=== PATIENT | female | born 1960 | race Caucasian/White ===

== ENCOUNTER → 2017-11-28 | Outpatient (CLI) | payer MEDICARE ==
--- NOTE | 2017-11-29 11:38 | MM ---
Reason for exam: screening (asymptomatic). Last mammogram was performed 1 year and 3 months ago. History: Patient is postmenopausal. Family history of breast cancer in maternal grandmother at age 60 and breast cancer in maternal aunt at age 50. Took estrogen for 2 months. Physical Findings: A clinical breast exam by your physician is recommended on an annual basis and results should be correlated with mammographic findings. MG 3D Screening Mammo W/Cad Bilateral CC and MLO view(s) were taken. Prior study comparison: August 28, 2016, bilateral MG screening mammo w CAD. September 12, 2015, bilateral MG screening mammo w CAD. The breast tissue is heterogeneously dense. This may lower the sensitivity of mammography. No suspicious abnormality. No significant changes when compared with prior studies. ASSESSMENT: Negative, BI-RAD 1 RECOMMENDATION: Routine screening mammogram of both breasts in 1 year.
== END | disposition home or self-care (01) ==
LOC: RADMAMWWP 07:40
PROVIDERS: ATTEND Family Medicine
DX: Z12.31 Encounter for screening mammogram for malignant neoplasm of breast (principal)
CPT/HCPCS: 77063; 77067

== ENCOUNTER → 2020-03-31 | Outpatient (CLI) | payer MEDICARE ==
[2020-03-31 19:53] LABS: Chol/HDL Ratio 2.28; LDL Cholesterol,Calculated 82.6 mg/dL (0.0-131.0); VLDL Calculation 13.4 mg/dL (5.00-40.00)
== END | disposition home or self-care (01) ==
LOC: LABWHC1 09:16
PROVIDERS: ATTEND Internal Medicine
DX: E03.9 Hypothyroidism, unspecified (principal); E78.00 Pure hypercholesterolemia, unspecified
CPT/HCPCS: 36415; 80061; 84439; 84443

== ENCOUNTER → 2020-04-22 | Outpatient (CLI) | payer MEDICARE ==
--- NOTE | 2020-04-24 15:21 | US ---
EXAMINATION TYPE: US thyroid st tissue head/neck DATE OF EXAM: 04/22/2020 COMPARISON: NONE CLINICAL HISTORY: 59-year-old female E04.2 thyroid nodule. TECHNIQUE: Multiple sonographic images of the thyroid gland are obtained. FINDINGS: GLAND SIZE: Right Lobe: 5.1 x 1.8 x 2.2 cm Overall Parenchyma: heterogenous Left Lobe: Surgically absent Isthmus Thickness: .3 cm NODULES RIGHT: # of nodules measured on right: 3 1. 2.3 X .8 x 1.9 cm hypoechoic solid nodule at the mid pole with well-defined margins; . This nod ule is wider than tall and shows intranodular vascularity. Prior size: 1.7 x .7 x 1.3 cm 2. 1.0 X .7 x 1.0 cm hypoechoic mixed nodule at the lower pole with well-defined margins; . This no dule is wider than tall and shows intranodular vascularity. Prior size Not measured on previous. 3. .5 X .4 x .4 cm echogenic, likely calcified, solid nodule at the lower pole with well-defined mar gins; . This nodule is wider than tall and shows no intranodular vascularity. Prior size: .5 x .6 x .5 cm LEFT: Surgically removed. ISTHMUS: # of nodules measured in the isthmus: 0 Bilateral neck scanned, no evidence of lymphadenopathy. IMPRESSION: 1. Status post left thyroidectomy. 2. Three nodules on the right, the largest at the mid pole currently measures 2.3 x 1.9 x 0.8 cm (joesph lazara 1.7 x 1.3 x 0.7 cm, previously). Given increasing size, consider FNA.
== END | disposition home or self-care (01) ==
LOC: RADUSWWP 14:53
PROVIDERS: ATTEND Internal Medicine
DX: E04.2 Nontoxic multinodular goiter (principal)
CPT/HCPCS: 76536

== ENCOUNTER → 2020-07-27 | Outpatient (CLI) | payer MEDICARE ==
--- NOTE | 2020-07-28 14:16 | MM ---
Reason for exam: screening (asymptomatic). Last mammogram was performed 2 years and 8 months ago. History: Patient is postmenopausal and history of other cancer. Family history of breast cancer in maternal grandmother at age 60 and breast cancer in maternal aunt at age 50. Took estrogen for 2 months. Physical Findings: A clinical breast exam by your physician is recommended on an annual basis and results should be correlated with mammographic findings. MG 3D Screening Mammo W/Cad Bilateral CC and MLO view(s) were taken. Prior study comparison: November 28, 2017, bilateral MG 3d screening mammo w/cad. August 28, 2016, bilateral MG screening mammo w CAD. The breast tissue is heterogeneously dense. This may lower the sensitivity of mammography. Benign appearing calcifications in the left breast. No significant changes when compared with prior studies. ASSESSMENT: Benign, BI-RAD 2 RECOMMENDATION: Routine screening mammogram of both breasts in 1 year.
== END | disposition home or self-care (01) ==
LOC: RADMAMWWP 16:24
PROVIDERS: ATTEND Family Medicine
DX: Z12.31 Encounter for screening mammogram for malignant neoplasm of breast (principal)
CPT/HCPCS: 77063; 77067

== ENCOUNTER → 2021-01-30 | Outpatient (CLI) | payer MEDICARE ==
[2021-01-30 09:36] LABS: Basophils # (A) 0.1 k/uL (0-0.2); Basophils % (A) 1 %; Eosinophils # (A) 0.3 k/uL (0-0.7); Eosinophils % (A) 6 %; HCT 39.1 % (34.0-46.0); HGB 13.3 gm/dL (11.4-16.0); Lymphocytes # (A) 1.4 k/uL (1.0-4.8); Lymphocytes % (A) 34 %; MCH 31.3 pg (25.0-35.0); MCV 92.1 fL (80.0-100.0); Mean Platelet Volume 7.6; Monocytes # (A) 0.3 k/uL (0-1.0); Monocytes % (A) 6 %; Neutrophils # (A) 2.1 k/uL (1.3-7.7); Neutrophils % (A) 50 %; Platelet Count 212 k/uL (150-450); RBC 4.24 m/uL (3.80-5.40); RDW 12.5 % (11.5-15.5); WBC 4.3 k/uL (3.8-10.6)
[2021-01-30 09:51] LABS: Albumin 4.5 g/dL (3.5-5.0); Calcium 9.6 mg/dL (8.4-10.2); Total Bilirubin 0.5 mg/dL (0.2-1.3)
--- NOTE | 2021-01-30 09:51 | US ---
EXAMINATION TYPE: US abdomen complete DATE OF EXAM: 01/30/2021 COMPARISON: NONE CLINICAL HISTORY: 60-year-old female K30 Functional dyspepsia. TECHNIQUE: Multiple sonographic images of the abdomen are obtained. FINDINGS: EXAM MEASUREMENTS: Liver Length: 14.2 cm Gallbladder: Surgically absent CBD: .9 cm Spleen: 9.8 cm Right Kidney: 8.3 x 3.8 x 4.8 cm Left Kidney: 8.8 x 4.5 x 3.8 cm Pancreas: Tail and portions of the pancreatic body are obscured by overlying bowel gas Liver: wnl Gallbladder: Surgically absent Evidence for sonographic Ahuja's sign: No CBD: Dilated. Spleen: wnl Right Kidney: Limited lower pole due to overlying bowel gas. No ellen hydronephrosis. Left Kidney: Limited lower pole due to overlying bowel gas. No ellen hydronephrosis. Upper IVC: wnl Abd Aorta: wnl IMPRESSION: 1. Dilated bile duct at 9 mm likely due to the postcholecystectomy status. Correlate for normal alkal ine phosphatase and bilirubin levels. 2. Technically limited visualization of portions of the kidneys and pancreas.
== END | disposition home or self-care (01) ==
LOC: RADUSWWP 08:47
PROVIDERS: ATTEND Family Medicine
DX: K30 Functional dyspepsia (principal); Z90.49 Acquired absence of other specified parts of digestive tract
CPT/HCPCS: 76700; 80053; 82150; 83690; 85025

== ENCOUNTER 2021-02-28 08:43 | Day surgery (SDC) | payer MEDICARE ==
[2021-02-24 14:34] VITALS: BMI 25.4
[~2021-02-28 08:43] MED LIST: LACTATED RINGERS 1,000 ML IV SCH; LIDOCAINE 1% (10MG/ML) FOR IV START INTRADERMA PRN
[2021-02-28 09:19] VITALS: TEMP 98.6
[2021-02-28] MEDS ORDERED: LIDOCAINE 1% INJ 10MG/ML (20 ML MDV) ONE (09:49)
[2021-02-28] MEDS ORDERED: GLYCOPYRROLATE 0.2 MG/ML 2 ML VIAL ONE (09:49)
[2021-02-28] MEDS ORDERED: PROPOFOL 10 MG/ML 20 ML VIAL IV ONE (09:49)
--- NOTE | 2021-02-28 10:48 | P.PCN ---
Date of Procedure: 02/28/21 Description of Procedure: Brief history: Patient is a 60-year-old female presenting for outpatient EGD and colonoscopy for evaluation of nausea and vomiting and constipation/chronic constipation. The patient reports episodes of nausea and vomiting especially when the patient is suffering from worsening constipation. Constipation has been chronic with bowel movements every 2-3 days however she can go up to 2 weeks bowel movements. Procedure performed: Esophagogastroduodenoscopy with biopsy and gold probe ablation of a small bowel AVM Colonoscopy with polypectomy Estimated blood loss: Minimal. Preoperative diagnosis: Nausea and vomiting, constipation, last colonoscopy 2015. Anesthesia: MAC Procedure: After informed consent was obtained from the patient was brought into the endoscopy unit and IV sedation was administered by anesthesia under continuous monitoring. Initially upper endoscopy was done. The Olympus GF 190 video endoscope was inserted into the mouth and esophagus intubated without any difficulty and was gradually advanced into the stomach and duodenum and carefully examined. The bulb and second part of the duodenum appeared normal, with biopsies taken. 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 The scope was then withdrawn into the stomach adequately insufflated with air and upon careful examination the antrum and body, cardia and fundus appeared normal, except for some mild punc vasquez erythema in the antrum and body suggestive of mild gastritis of biopsies taken. The scope was then withdrawn into the esophagus. The GE junction was located at 38 cm to the incisors, with biopsies of lower esophagus. It appeared regular with no erythema erosions or ulcerations. Rest of the esophagus appeared normal. Patient tolerated the procedure well. At this time the patient continued to remain sedation. Initial digital rectal examination was normal. Olympus CF 190 video colonoscope was then inserted into the rectum and gradually advanced to the cecum without any difficulty. Careful examination was performed as the scope was gradually being withdrawn. The prep was excellent. The cecum, ascending colon, transverse colon, descending colon, sigmoid colon and rectum appeared normal.. A diminutive 2 mm polyp was removed with cold forcep polypectomy from the transverse colon. Retroflexion was performed in the rectum and no lesions were noted, low-grade internal hemorrhoi ds. Patient tolerated the procedure well. Impression: 1. Mild gastritis. 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 Biopsies of the duodenum, antrum and body and lower esophagus. 2. Diminutive transverse colon polyp removed with cold forcep polypectomy. Otherwise normal-appearing colon from rectum to cecum. Internal hemorrhoids. Recommendations: Findings of this examination were discussed with the patient as well as her family. Okay to resume diet. Okay to resume medications. Continue current medical management. Await follows a from biopsies and polypectomy. Recommend repeat colonoscopy in 7 years pending pathology from polypectomy.
[2021-02-28 11:26] VITALS: BP 110/78; PULSE 78; RESP 18
== END 2021-02-28 11:27 | disposition home or self-care (01) ==
LOC: ORWHC2ENDO 08:43
PROVIDERS: ATTEND Internal Medicine
DX: D12.3 Benign neoplasm of transverse colon (principal); K64.8 Other hemorrhoids; K29.50 Unspecified chronic gastritis without bleeding; K20.90 Esophagitis, unspecified without bleeding; K31.819 Angiodysplasia of stomach and duodenum without bleeding; K59.09 Other constipation; E07.9 Disorder of thyroid, unspecified; E78.5 Hyperlipidemia, unspecified; Z79.890 Hormone replacement therapy; Z79.899 Other long term (current) drug therapy; Z88.6 Allergy status to analgesic agent
CPT/HCPCS: 88305; 45380; 43239; 43255; J2001; J2704

== ENCOUNTER 2021-06-03 14:48 | Inpatient (IN) | payer MEDICARE ==
--- NOTE | 2021-06-03 15:27 | ED ---
General Adult HPI - General Chief complaint: Psychiatric Symptoms Stated complaint: Mental Health Time Seen by Provider: 06/03/21 14:51 Source: patient, family, RN notes reviewed, old records reviewed Mode of arrival: ambulatory Limitations: no limitations - History of Present Illness Initial comments: 61-year-old female presenting for mental health evaluation. Patient has had increased depression, anxiety, suicidal thoughts. She denies suicide attempt. She has had possible plan to overdose on medication. She is currently on Prozac and bupropion. No recent medication changes. She currently does not have a psychiatrist. She denies alcohol or illicit drugs. No physical complaints. - Related Data Home Medications Medication Instructions Recorded Confirmed Atorvastatin [Lipitor] 20 mg PO DAILY 04/20/15 06/03/21 Levothyroxine Sodium [Synthroid] 50 mcg PO DAILY 04/20/15 06/03/21 Rivastigmine Tartrate [Exelon] 3 mg PO BID 02/24/21 06/03/21 buPROPion XL [Wellbutrin Xl] 300 mg PO DAILY 02/24/21 06/03/21 FLUoxetine HCL [PROzac] 60 mg PO DAILY 06/03/21 06/03/21 Linaclotide [Linzess] 145 mcg PO DAILY 06/03/21 06/03/21 Omeprazole 20 mg PO DAILY 06/03/21 06/03/21 Allergies Allergy/AdvReac Type Severity Reaction Status Date / Time aspirin [From Percodan] AdvReac Nausea & Verified 06/03/21 14:54 Vomiting oxycodone HCl [From Percodan] AdvReac Nausea & Verified 06/03/21 14:54 Vomiting oxycodone terephthalate AdvReac Nausea & Verified 06/03/21 14:54 [From Percodan] Vomiting Review of Systems ROS Statement: Those systems with pertinent positive or pertinent negative responses have been documented in the HPI. ROS Other: All systems not noted in ROS Statement are negative. Past Medical History Past Medical History: Cancer, Hyperlipidemia, Memory Impairment, Thyroid Disorder Additional Past Medical History / Comment(s): ABD. PAIN, CONSTIPATION AND N/V. SKIN CANCER History of Any Multi-Drug Resistant Organisms: None Reported Past Surgical History: Cardiac Ablation, Section, Cholecystectomy, Hysterectomy Additional Past Surgical History / Comment(s): thyroid surg. ovarian mass. COLONOSCOPY Past Anesthesia/Blood Transfusion Reactions: No Reported Reaction Past Psychological History: Anxiety, Depression, PTSD Smoking Status: Never smoker Past Alcohol Use History: Rare Past Drug Use History: None Reported - Past Family History Mother Family Medical History: Deep Vein Thrombosis (DVT) Father Family Medical History: Cancer General Exam Limitations: no limitations General appearance: alert, in no apparent distress Head exam: Present: atraumatic, normocephalic Eye exam: Present: normal appearance, PERRL ENT exam: Present: normal exam Neck exam: Present: normal inspection. Absent: tenderness, meningismus Respiratory exam: Present: normal lung sounds bilaterally. Absent: respiratory distress, wheezes Cardiovascular Exam: Present: regular rate, normal rhythm GI/Abdominal exam: Present: soft. Absent: distended, tenderness, guarding Extremities exam: Present: normal inspection, normal capillary refill. Absent: pedal edema Neurological exam: Present: alert, oriented X3 Psychiatric exam: Present: depressed, flat affect, suicidal ideation Skin exam: Present: warm, dry, intact. Absent: cyanosis, diaphoretic Course Vital Signs 06/03/21 14:49 Temperature 97.9 F Pulse Rate 60 Respiratory 19 Rate Blood Pressure 131/80 O2 Sat by Pulse 98 Oximetry - Reevaluation(s) Reevaluation #1: 06/03/21 1510 Medically cleared for EPS Medical Decision Making - Medical Decision Making 61-year-old who had presented for mental health evaluation. She was cleared medically and evaluated by EPS, felt to require inpatient psychiatric evaluation treatment. She will be admitted to this institution. - Lab Data Lab Results 06/03/21 Range/Units 15:12 Urine Opiates Screen Not Detected (NotDetected) Ur Oxycodone Screen Not Detected (NotDetected) Urine Methadone Screen Not Detected (NotDetected) Ur Propoxyphene Screen Not Detected (NotDetected) Ur Barbiturates Screen Not Detected (NotDetected) U Tricyclic Antidepress Not Detected (NotDetected) Ur Phencyclidine Scrn Not Detected (NotDetected) Ur Amphetamines Screen Not Detected (NotDetected) U Methamphetamines Scrn Not Detected (NotDetected) U Benzodiazepines Scrn Detected H (NotDetected) Urine Cocaine Screen Not Detected (NotDetected) U Marijuana (THC) Screen Not Detected (NotDetected) Disposition Clinical Impression: Depression, Suicidal ideation Disposition: ADMITTED IP TO THIS HOSP Condition: Stable Is patient prescribed a controlled substance at d/c from ED?: No Referrals: Teddy Mathias III, MD [Primary Care Provider] - 1-2 days Decision to Admit Reason: Admit from EC Decision Date: 06/03/21 Decision Time: 16:40
[2021-06-03 15:33] LABS: Amphetamine Screen,Urine Not Detected (NotDetected); Barbiturate Screen,Urine Not Detected (NotDetected); Benzodiazepines Screen,Urine Detected (NotDetected); Cocaine Screen,Urine Not Detected (NotDetected); Methadone Screen, Urine Not Detected (NotDetected); Opiate Screen,Urine Not Detected (NotDetected); Oxycodone Screen, Urine Not Detected (NotDetected); Phencyclidine Screen,Urine Not Detected (NotDetected); Tricyclic Antidepressant,Urine Not Detected (NotDetected); Urn Cannabinoid Scrn Not Detected (NotDetected)
[2021-06-03] MEDS ORDERED: MAG HYDROX/AL HYDROX/SIMETH 30 ML CUP PO PRN (19:14)
[2021-06-03] MEDS ORDERED: ACETAMINOPHEN TAB 325 MG TAB PO PRN (19:14)
[2021-06-03] MEDS ORDERED: hydrOXYzine pamoate 25 MG CAP PO PRN (19:16)
[2021-06-03 20:50] LABS: Amorphous Sediment,Urine Rare /hpf; Appearance,Urine Cloudy (Clear); Bilirubin,Urine Negative (Negative); Blood,Urine Negative (Negative); Color,Urine Yellow; Glucose,Urine (UA) Negative (Negative); Ketones,Urine Trace (Negative); Leukocyte Esterase,Urine Negative (Negative); Mucus,Urine Rare /hpf; Nitrite,Urine Negative (Negative); Protein,Urine Negative (Negative); Specific Gravity,Urine 1.017 (1.001-1.035); Urobilinogen,Urine <2.0 mg/dL (<2.0); WBC,Urine 1 /hpf (0-5)
[2021-06-04 07:55] LABS: Basophils % (A) 1 %; Eosinophils # (A) 0.2 k/uL (0-0.7); Eosinophils % (A) 5 %; HCT 39.5 % (34.0-46.0); Lymphocytes # (A) 1.9 k/uL (1.0-4.8); Lymphocytes % (A) 46 %; MCV 93.8 fL (80.0-100.0); Mean Platelet Volume 7.9; Monocytes # (A) 0.3 k/uL (0-1.0); Monocytes % (A) 7 %; Neutrophils # (A) 1.6 k/uL (1.3-7.7); Neutrophils % (A) 39 %; Platelet Count 222 k/uL (150-450); RBC 4.21 m/uL (3.80-5.40); RDW 12.4 % (11.5-15.5); WBC 4.2 k/uL (3.8-10.6)
[2021-06-04 08:08] LABS: ALT 20 U/L (4-34); AST 29 U/L (14-36); African American GFR (CKD) >90 (>60 ml/min/1.73 sqM); Albumin 4.3 g/dL (3.5-5.0); Alkaline Phosphatase 59 U/L (38-126); Anion Gap 7 mmol/L; Blood Urea Nitrogen 17 mg/dL (7-17); Calcium 9.7 mg/dL (8.4-10.2); Carbon Dioxide 27 mmol/L (22-30); Chloride 107 mmol/L (98-107); Glucose 80 mg/dL (74-99); Non-African American GFR(CKD) 87 (>60 ml/min/1.73 sqM); Potassium 3.9 mmol/L (3.5-5.1); Sodium 141 mmol/L (137-145); Total Bilirubin 0.5 mg/dL (0.2-1.3); Total Protein 6.5 g/dL (6.3-8.2)
[2021-06-04] MEDS: FLUoxetine HCL 20 MG CAP PO SCH (08:18)
[2021-06-04] MEDS ORDERED: buPROPion XL 300 MG TAB.ER.24H PO SCH (09:00)
[2021-06-04 11:36] LABS: Chol/HDL Ratio 2.71; Cholesterol 160 mg/dL (0-200); LDL Cholesterol,Calculated 78.4 mg/dL (0.0-131.0)
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
[2021-06-04] MEDS: DONEPEZIL 10 MG TAB PO SCH ×2 (14:07→14:11)
[2021-06-04 14:16] LABS: Hemoglobin A1C 5.3 % (4.0-6.0)
[2021-06-04] MEDS: MIRTAZAPINE 15 MG TAB PO SCH (20:40)
[2021-06-04] MEDS: RIVASTIGMINE 3 MG PO SCH (20:41)
--- NOTE | 2021-06-04 22:59 | P.CONS ---
History of Present Illness - History of Present Illness This is a pleasant 61 years old female with past medical history of hypothyr oidism, memory impairment and patient follows up With [facility] neurologist, irritable bowel syndrome. Patient was admitted to the mental health unit with depression and anxiety. Medical consult was requested for routine medical management Medical consult was requested for routine medical management. Seen walking in the hallway with no difficulty. Denies chest pain or dyspnea. No coughing. She denies change in urine or bowel habits. No fever labs including CBC, BMP and liver enzymes are unremarkable. Urine drug screen is only positive for benzodiazepines. Urine analysis is not suspicious of infection Review of Systems Review of systems CONSTITUTIONAL: No fever, no malaise, no fatigue. HEENT: No recent visual problems or hearing problems. Denied any sore throat. CARDIOVASCULAR: No orthopnea, PND, no palpitations, no syncope. PULMONARY: No shortness of breath, no cough, no hemoptysis. GASTROINTESTINAL: No diarrhea, no nausea, no vomiting, no abdominal pain. Normoactive bowel sounds. NEUROLOGICAL: No headaches, no weakness, no numbness. HEMATOLOGICAL: Denies any bleeding or petechiae. GENITOURINARY: Denies any burning micturition, frequency, or urgency. MUSCULOSKELETAL/RHEUMATOLOGICAL: Denies any joint pain, swelling, or any muscle pain. ENDOCRINE: Denies any polyuria or polydipsia. Past Medical History Past Medical History: Cancer, Hyperlipidemia, Memory Impairment, Thyroid Disor be[place] Additional Past Medical History / Comment(s): ABD. PAIN, CONSTIPATION AND N/V. SKIN CANCER History of Any Multi-Drug Resistant Organisms: None Reported Past Surgical History: Cardiac Ablation, Section, Cholecystectomy, Hysterectomy Additional Past Surgical History / Comment(s): thyroid surg. ovarian mass. COLONOSCOPY Past Anesthesia/Blood Transfusion Reactions: No Reported Reaction Past Psychological History: Anxiety, Depression, PTSD Smoking Status: Never smoker Past Alcohol Use History: Rare Past Drug Use History: None Reported - Past Family History Mother Family Medical History: Deep Vein Thrombosis (DVT) Father Family Medical History: Cancer Medications and Allergies Home Medications Medication Instructions Recorded Confirmed Type Atorvastatin [Lipitor] 20 mg PO DAILY 04/20/15 06/03/21 History Levothyroxine Sodium [Synthroid] 50 mcg PO DAILY 04/20/15 06/03/21 History Rivastigmine Tartrate [Exelon] 3 mg PO BID 02/24/21 06/03/21 History buPROPion XL [Wellbutrin Xl] 300 mg PO DAILY 02/24/21 06/03/21 History FLUoxetine HCL [PROzac] 60 mg PO DAILY 06/03/21 06/03/21 History Linaclotide [Linzess] 145 mcg PO DAILY 06/03/21 06/03/21 History Omeprazole 20 mg PO DAILY 06/03/21 06/03/21 History Allergies Allergy/AdvReac Type Severity Reaction Status Date / Time aspirin [From Percodan] AdvReac Nausea & Verified 06/03/21 20:45 Vomiting oxycodone HCl [From Percodan] AdvReac Nausea & Verified 06/03/21 20:45 Vomiting oxycodone terephthalate AdvReac Nausea & Verified 06/03/21 20:45 [From Percodan] Vomiting Physical Exam Vitals: Vital Signs Temp Pulse Pulse Resp BP BP Pulse Ox 06/04/21 06:47 98.5 F 62 16 99/57 06/03/21 20:58 98.6 F 69 15 135/70 06/03/21 19:24 20 06/03/21 17:53 18 95 06/03/21 15:53 20 98 06/03/21 14:49 97.9 F 60 19 131/80 98 Intake and Output 06/03/21 06/04/21 06/04/21 22:59 06:59 14:59 Other: Weight 69.967 kg GENERAL: The patient is alert and oriented x3, not in any acute distress. Well developed, well nourished. HEENT: Pupils are round and equally reacting to light. EOMI. No scleral icterus. No conjunctival pallor. Normocephalic, atraumatic. No pharyngeal erythema. No thyromegaly. CARDIOVASCULAR: S1 and S2 present. No murmurs, rubs, or gallops. PULMONARY: Chest is clear to auscultation, no wheezing or crackles. ABDOMEN: Soft, nontender, nondistended, normoactive bowel sounds. No palpable organomegaly. MUSCULOSKELETAL: No joint swelling or deformity. EXTREMITIES: No cyanosis, clubbing, or pedal edema. NEUROLOGICAL: Gross neurological examination did not reveal any focal deficits. SKIN: No rashes. no petechiae. Results CBC & Chem 7: 08/01/21 07:17 06/04/21 07:17 Labs: Abnormal Lab Results - Last 24 Hours (Table) 06/03/21 06/03/21 Range/Units 15:12 15:12 Urine Appearance Cloudy H (Clear) Urine Ketones Trace H (Negative) Amorphous Sediment Rare H (None) /hpf Urine Mucus Rare H (None) /hpf U Benzodiazepines Scrn Detected H (NotDetected) Assessment and Plan Assessment: -Depression and other psychiatric illnesses, as per [facility] primary team -Hypothyroidism continue with levothyroxine -Memory impairment, continue with same medication and follow-up with her neurologist and [facility] We recommend patient follow up with PCP in one week after discharge, patient was instructed with the same Consulting us, see the patient on as needed basis. Please free to contact us for any further questions
[2021-06-05] MEDS: LEVOTHYROXINE 50 MCG TAB PO SCH (06:27)
[2021-06-05] MEDS: FAMOTIDINE 20 MG TAB PO SCH (08:29)
[2021-06-05] MEDS: RIVASTIGMINE 3 MG PO SCH ×2 (08:30→20:33)
[2021-06-05] MEDS: NON FORMULARY DRUG (Linaclotide [Linzess] 145 MCG Capsule) PO SCH (08:30)
[2021-06-05] MEDS: ATORVASTATIN 20 MG TAB PO SCH (08:30)
[2021-06-05] MEDS: FLUoxetine HCL 20 MG CAP PO SCH (08:30)
[2021-06-05] MEDS ORDERED: buPROPion XL 150 MG TAB.ER.24H PO SCH (09:00)
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
[2021-06-05] MEDS: MIRTAZAPINE 15 MG TAB PO SCH (20:34)
[2021-06-05] MEDS ORDERED: PRAZOSIN 1 MG CAP PO SCH (21:00)
[2021-06-06] MEDS: LEVOTHYROXINE 50 MCG TAB PO SCH (06:49)
[2021-06-06 06:59] VITALS: RESP 16; TEMP 97.5
[2021-06-06] MEDS: FLUoxetine HCL 20 MG CAP PO SCH (07:37)
[2021-06-06] MEDS: ATORVASTATIN 20 MG TAB PO SCH (07:37)
[2021-06-06] MEDS: NON FORMULARY DRUG (Linaclotide [Linzess] 145 MCG Capsule) PO SCH (07:37)
[2021-06-06] MEDS: FAMOTIDINE 20 MG TAB PO SCH (07:37)
[2021-06-06] MEDS: RIVASTIGMINE 3 MG PO SCH (07:38)
[2021-06-06 08:03] VITALS: BP 97/60; PULSE 83
--- NOTE | 2021-06-06 11:07 | P.DS ---
Providers Date of admission: 06/03/21 18:48 Expected date of discharge: 06/06/21 Attending physician: Austin Carpio MD Consults: 06/03/21 19:14 Consult Physician Routine Consulting Provider: Ginny Perez Consult Reason/Comments: New Admission H & P Do you want consulting provider notified?: Yes Primary care physician: Teddy Mathias - Discharge Diagnosis(es) (1) Major depressive disorder, recurrent severe without psychotic features Current Visit: Yes Status: Acute Priority: High (2) Anxiety disorder, unspecified Current Visit: Yes Status: Chronic Priority: Medium (3) PTSD (post-traumatic stress disorder) Current Visit: Yes Status: Chronic Priority: Medium Hospital Course: Admission HPI: Initial psychiatric evaluation was completed by Dr. Mills on 06/04/2021 who wrote: "Patient is a 61-year-old female. She is the mother of 4 adult children. She is a retired teacher Patient presented to the hospital due to worsening depression with suicidal ideation with a plan to take an overdose. Patient reported having tense relatio nship with her adult children. She states one of her sons does not allow her to spend time alone with her grandchildren because she had been diagnosed with mild cognitive impairment in 2014 by a neurologist. According to the patient she could not tolerate Aricept due to upset stomach and then was put on Exelon. Patient states she noted improvement in her cognitive abilities since she started Exelon. Patient states she continues to complete her activities of daily living with no issues and also drive her car. Patient states in 2014 she had to [facility] due to having mild cognitive impairment. Patient states her psychiatrist Dr. Monson, who managed her depression and anxiety for numerous years left the practice a year ago . She states her current health insurance does not affiliate with her therapist whom she had seen for 5 years. Patient states she was diagnosed with depression over 30 years ago. She states she has been taking Prozac for almost 30 years. She states at first she was put on Prozac 20 mg and then was increased to 60mg in the last few years. Patient states 2 years ago her psychiatrist added Wellbutrin XL 150 mg and then was increased to 300 mg a year ago. Patient noted improvement of her depression however her anxiety worsened. Patient reported feeling increasingly depressed, having sleep difficulties, having crying spells, low tolerance for frustration, feeling hopeless and helpless in addition to having thoughts of suicide. Patient states she had Xanax 0.5 mg to take whenever she has to take a flight. Patient states in the last couple days she took 3 or 4 tablets of Xanax to help her sleep but that did not help. He states that she was afraid of taking too much of Xanax. Patient reported having the tendency to worry just ab out everything. She reported having nightmares. Patient denies homicidal ideations intent or plan. At this time patient denies any auditory or visual hallucinations. Patient denies any flight of ideas racing thoughts and increased in goal directed behavior. Patient denies having previous inpatient psychiatric admission. Denies having history of suicide attempts. She states her depression and anxiety started over 30 years ago as managed by . Also has been receiving therapy. In the past she did not respond favorably to Celexa. She states she has been responding favorably to Prozac and then Wellbutrin was added 2 years ago" Hospital course: Upon admission to the unit patient was initially depressed and anxious with mood congruent affect and poor hygiene and grooming. Patient was however directable and agreeable to commence treatment. Patient was continued on her home medications of Prozac and Remeron and her dose of Wellbutrin was decreased from 300 mg to 150 mg in order to address her worsening anxiety and insomnia. The patient was also evaluated by the medical team for history and physical examination. The patient engaged in both individual and milieu therapies. Over the course of the hospitalization, the treatment team was made aware by the patient's family that she has been exhibiting some hoarding-like behaviors. The decision was made to taper off the Wellbutrin as this may contribute to these kind of behaviors along with her elevated anxiety and symptoms of insomnia. 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 The patient displayed gradual improvement on her regimen of Prozac, Remeron, and prazosin and with Wellbutrin being discontinued. On the day of discharge, the patient is not endorsing any suicidal or homicidal ideation, intention, and/or plan. She denies any access to firearms or weapons in the family confirms that they took away all the excess amounts of Xanax in the home. Furthermore, the patient is not reporting any auditory or visual hallucinations. She is denying any paranoia or other delusions. She is future oriented. She expresses a strong desire to live for herself and for her family, and strongly desires to reconcile with her son so that she may be reunited with her grandchildren. The patient was counseled on length on being adherent with her medications and following up with her outpatient appointments. The patient was also counseled at length on abstaining from benzodiazepine medications as this may contribute to her cognitive impairment and place her at increased risk for falls and dependency. The patient expresses understanding. Prior to discharge, family meeting will be arranged by social worker aide to answer any questions and ensure safety. Mental status exam: General Appearance: Patient appears to be stated age is alert, pleasant, and cooperative. Patient is in no acute distress and has good hygiene and grooming. Behavior: Patient is calmly seated without any agitated behavior. Eye contact is appropriate. Psychomotor activity is normal. Speech: Patient's speech is fluent and nonpressured. Hyperverbal but interruptible. Normal rate and tone. Mood/Affect: Patient reports their mood is "feeling really good", affect is congruent and euthymic to bright. Suicidality/Homicidality: Patient denies having any suicidal or homicidal ideation intent or plan. Perceptions: Patient denies any auditory or visual hallucinations. Though content/process: There is no evidence of any delusional thought content and thought process is linear and goal-directed. The patient is future oriented. Memory and concentration: AOX3, grossly intact for the purposes of this session. Can spell "WORLD" backwards correctly. Judgment and insight: Improved Vital Signs Temp 97.5 F L 06/06/21 06:58 Pulse 83 06/06/21 07:40 Resp 16 06/06/21 07:40 BP 97/60 06/06/21 07:40 Pulse Ox 95 06/03/21 17:53 Impression: Major depressive disorder recurrent severe without psychotic features Anxiety disorder, unspecified Posttraumatic stress disorder Plan: -Continue with discharge today as patient has improved and stabilized psychiatrically and is not currently an imminent threat to herself and/or others. -Continue medications: Prozac 60 mg daily for depression/anxiety/PTSD Remeron 7.5 mg at bedtime for insomnia/depression Prazosin 1 mg at bedtime for PTSD related nightmares. -Patient was counseled on the need for medication compliance and appropriate follow-up at mental health and also primary care for medical issues. Patient verbalized understanding and agreed. -Social work to arrange for and conduct family meeting to ensure safety upon discharge and answer any questions/concerns. Social work also to arrange for patients follow up appointments with [facility] for psychiatric care along with follow up with primary care provider. -Patient counseled on abstaining from recreational drugs and marijuana and alcohol. Was informed/educated on the adverse effects on their physical and mental health. Patient verbally agreed and understood. -Patient was instructed to return to the hospital or seek immediate medical care if their psychiatric or medical symptoms do worsen or reoccur. -Psychoeducation and supportive therapy provided to patient. Risks and benefits of pharmacological treatment versus the risks and benefits of nontreatment weight and discussed. Informed consent discussion held. Common side effects of psychotropics discussed such as, but not limited to headache, GI disturbance, sexual dysfunction, movement disorders, sedation, and orthostatic hypotension. Life threatening and blackbox warnings of prescribed medications also discussed. Potential risks of operating a vehicle or heavy machinery discussed with patient at length. Advised on importance of compliance and a reliable and responsible manner. Patient advised to review FDA consumer labeling of all medications prior to taking. Patient verbalized understanding of potential risks, and agrees with current treatment plan. Patient advised to medically contact physician/emergency personnel if any acute changes in condition occur. Allergies Allergy/AdvReac Type Severity Reaction Status Date / Time aspirin [From Percodan] AdvReac Nausea & Verified 06/03/21 20:45 Vomiting oxycodone HCl [From Percodan] AdvReac Nausea & Verified 06/03/21 20:45 Vomiting oxycodone terephthalate AdvReac Nausea & Verified 06/03/21 20:45 [From Percodan] Vomiting Laboratory Results WBC 4.2 k/uL (3.8-10.6) 06/04/21 07:17 RBC 4.21 m/uL (3.80-5.40) 06/04/21 07:17 Hgb 13.0 gm/dL (11.4-16.0) 06/04/21 07:17 Hct 39.5 % (34.0-46.0) 06/04/21 07:17 MCV 93.8 fL (80.0-100.0) 06/04/21 07:17 MCH 31.0 pg (25.0-35.0) 06/04/21 07:17 MCHC 33.0 g/dL (31.0-37.0) 06/04/21 07:17 RDW 12.4 % (11.5-15.5) 06/04/21 07:17 Plt Count 222 k/uL (150-450) 06/04/21 07:17 MPV 7.9 06/04/21 07:17 Neutrophils % 39 % 06/04/21 07:17 Lymphocytes % 46 % 06/04/21 07:17 Monocytes % 7 % 06/04/21 07:17 Eosinophils % 5 % 06/04/21 07:17 Basophils % 1 % 06/04/21 07:17 Neutrophils # 1.6 k/uL (1.3-7.7) 06/04/21 07:17 Lymphocytes # 1.9 k/uL (1.0-4.8) 06/04/21 07:17 Monocytes # 0.3 k/uL (0-1.0) 06/04/21 07:17 Eosinophils # 0.2 k/uL (0-0.7) 06/04/21 07:17 Basophils # 0.0 k/uL (0-0.2) 06/04/21 07:17 Sodium 141 mmol/L (137-145) 06/04/21 07:17 Potassium 3.9 mmol/L (3.5-5.1) 06/04/21 07:17 Chloride 107 mmol/L (98-107) 06/04/21 07:17 Carbon Dioxide 27 mmol/L (22-30) 06/04/21 07:17 Anion Gap 7 mmol/L 06/04/21 07:17 BUN 17 mg/dL (7-17) 06/04/21 07:17 Creatinine 0.75 mg/dL (0.52-1.04) 06/04/21 07:17 Est GFR (CKD-EPI)AfAm >90 (>60 ml/min/1.73 sqM) 06/04/21 07:17 Est GFR (CKD-EPI)NonAf 87 (>60 ml/min/1.73 sqM) 06/04/21 07:17 Glucose 80 mg/dL (74-99) 06/04/21 07:[address] Glu mg/dL 105 06/04/21 07:17 Hemoglobin A1c 5.3 % (4.0-6.0) 06/04/21 07:17 Calcium 9.7 mg/dL (8.4-10.2) 06/04/21 07:17 Total Bilirubin 0.5 mg/dL (0.2-1.3) 06/04/21 07:17 AST 29 U/L (14-36) 06/04/21 07:17 ALT 20 U/L (4-34) 06/04/21 07:17 Alkaline Phosphatase 59 U/L (38-126) 06/04/21 07:17 Total Protein 6.5 g/dL (6.3-8.2) 06/04/21 07:17 Albumin 4.3 g/dL (3.5-5.0) 06/04/21 07:17 Triglycerides 113.0 mg/dL (0.0-149.0) 06/04/21 07:17 Cholesterol 160 mg/dL (0-200) 06/04/21 07:17 LDL Cholesterol, Calc 78.4 mg/dL (0.0-131.0) 06/04/21 07:17 VLDL Cholesterol, Calc 22.60 mg/dL (5.00-40.00) 06/04/21 07:17 HDL Cholesterol 59.0 mg/dL (40.0-60.0) 06/04/21 07:17 Cholesterol/HDL Ratio 2.71 06/04/21 07:17 TSH 2.110 mIU/L (0.465-4.680) 06/04/21 07:17 Urine Color Yellow 06/03/21 15:12 Urine Appearance Cloudy (Clear) H 06/03/21 15:12 Urine pH 8.0 (5.0-8.0) 06/03/21 15:12 Ur Specific [place] 1.017 (1.001-1.035) 06/03/21 15:12 Urine Protein Negative (Negative) 06/03/21 15:12 Urine Glucose (UA) Negative (Negative) 06/03/21 15:12 Urine Ketones Trace (Negative) H 06/03/21 15:12 Urine Blood Negative (Negative) 06/03/21 15:12 Urine Nitrite Negative (Negative) 06/03/21 15:12 Urine Bilirubin Negative (Negative) 06/03/21 15:12 Urine Urobilinogen <2.0 mg/dL (<2.0) 06/03/21 15:12 Ur Leukocyte Esterase Negative (Negative) 06/03/21 15:12 Urine WBC 1 /hpf (0-5) 06/03/21 15:12 Amorphous Sediment Rare /hpf (None) H 06/03/21 15:12 Urine Mucus Rare /hpf (None) H 06/03/21 15:12 Urine Opiates Screen Not Detected (NotDetected) 06/03/21 15:12 Ur Oxycodone Screen Not Detected (NotDetected) 06/03/21 15:12 Urine Methadone Screen Not Detected (NotDetected) 06/03/21 15:12 Ur Propoxyphene Screen Not Detected (NotDetected) 06/03/21 15:12 Ur Barbiturates Screen Not Detected (NotDetected) 06/03/21 15:12 U Tricyclic Antidepress Not Detected (NotDetected) 06/03/21 15:12 Ur Phencyclidine Scrn Not Detected (NotDetected) 06/03/21 15:12 Ur Amphetamines Screen Not Detected (NotDetected) 06/03/21 15:12 U Methamphetamines Scrn Not Detected (NotDetected) 06/03/21 15:12 U Benzodiazepines Scrn Detected (NotDetected) H 06/03/21 15:12 Urine Cocaine Screen Not Detected (NotDetected) 06/03/21 15:12 U Marijuana (THC) Screen Not Detected (NotDetected) 06/03/21 15:12 Patient Condition at Discharge: Stable Plan - Discharge Summary Discharge Rx Participant: No New Discharge Prescriptions: New Prazosin [Minipress] 1 mg PO HS 30 Days cap FLUoxetine HCL [PROzac] 60 mg PO DAILY 30 Days cap Mirtazapine [Remeron] 7.5 mg PO HS 30 Days tab Continue Atorvastatin [Lipitor] 20 mg PO DAILY Levothyroxine Sodium [Synthroid] 50 mcg PO DAILY Rivastigmine Tartrate [Exelon] 3 mg PO BID Linaclotide [Linzess] 145 mcg PO DAILY Omeprazole 20 mg PO DAILY Discontinued buPROPion XL [Wellbutrin Xl] 300 mg PO DAILY FLUoxetine HCL [PROzac] 60 mg PO DAILY Discharge Medication List Atorvastatin [Lipitor] 20 mg PO DAILY 04/20/15 [History] Levothyroxine Sodium [Synthroid] 50 mcg PO DAILY 04/20/15 [History] Rivastigmine Tartrate [Exelon] 3 mg PO BID 02/24/21 [History] Linaclotide [Linzess] 145 mcg PO DAILY 06/03/21 [History] Omeprazole 20 mg PO DAILY 06/03/21 [History] FLUoxetine HCL [PROzac] 60 mg PO DAILY 30 Days cap 06/06/21 [Rx] Mirtazapine [Remeron] 7.5 mg PO HS 30 Days tab 06/06/21 [Rx] Prazosin [Minipress] 1 mg PO HS 30 Days cap 06/06/21 [Rx] Follow up Appointment(s)/Referral(s): Teddy Mathias III, MD [Primary Care Provider] - 1-2 days Discharge Disposition: HOME SELF-CARE Care Plan Goals (MU): Activity and diet as tolerated. Avoid the use of street drugs and alcohol. Take all medications as prescribed. When you are in need of refills on your medications please contact your medical provider and/or outpatient psychiatrist to have this done. Please go to scheduled outpatient appointment for aftercare. If symptoms return or become worse call the crisis line at and/or go to the nearest emergency room for an evaluation.
== END 2021-06-06 14:02 | disposition home or self-care (01) | DRG 885 ==
LOC: EC 14:48 → 3MHU 18:48
PROVIDERS: ADMIT Psychiatry & Neurology Psychiatry; ATTEND Psychiatry & Neurology Psychiatry
DX: F33.2 Major depressive disorder, recurrent severe without psychotic features (principal); R45.851 Suicidal ideations; F43.10 Post-traumatic stress disorder, unspecified; G31.84 Mild cognitive impairment of uncertain or unknown etiology; G47.00 Insomnia, unspecified; Z79.890 Hormone replacement therapy; Z79.899 Other long term (current) drug therapy; Z81.8 Family history of other mental and behavioral disorders; Z85.828 Personal history of other malignant neoplasm of skin; Z87.828 Personal history of other (healed) physical injury and trauma; Z90.710 Acquired absence of both cervix and uterus; Z91.81 History of falling; E78.5 Hyperlipidemia, unspecified; E03.9 Hypothyroidism, unspecified
CPT/HCPCS: 80053; 80061; 80306; 81001; 82075; 83036; 84443; 85025; 99285

== ENCOUNTER → 2021-08-24 | Outpatient (CLI) | payer MEDICARE ==
--- NOTE | 2021-08-28 10:49 | MM ---
Reason for exam: screening (asymptomatic). Last mammogram was performed 1 year and 1 month ago. History: Patient is postmenopausal and history of other cancer. Family history of breast cancer in paternal grandmother at age 60 and breast cancer in paternal aunt at age 50. Took estrogen for 2 months. Physical Findings: A clinical breast exam by your physician is recommended on an annual basis and results should be correlated with mammographic findings. MG 3D Screening Mammo W/Cad Bilateral CC and MLO view(s) were taken. Prior study comparison: July 27, 2020, bilateral MG 3d screening mammo w/cad. November 28, 2017, bilateral MG 3d screening mammo w/cad. August 28, 2016, bilateral MG screening mammo w CAD. September 12, 2015, bilateral MG screening mammo w CAD. The breast tissue is heterogeneously dense. This may lower the sensitivity of mammography. No significant changes when compared with prior studies. ASSESSMENT: Negative, BI-RAD 1 RECOMMENDATION: Routine screening mammogram of both breasts in 1 year.
== END | disposition home or self-care (01) ==
LOC: RADMAMWWP 11:00
PROVIDERS: ATTEND Family Medicine
DX: Z12.31 Encounter for screening mammogram for malignant neoplasm of breast (principal)
CPT/HCPCS: 77063; 77067

== ENCOUNTER → 2022-08-27 | Outpatient (CLI) | payer MEDICARE ==
--- NOTE | 2022-08-28 09:43 | MM ---
Reason for Exam: Screening (asymptomatic). Last screening mammogram was performed 12 month(s) ago. Patient History: Menarche at age 13. First Full-Term at age 21. Hysterectomy at age 45. Postmenopausal. Patient has history of breast feeding. Estrogen for 2 months. Paternal grandmother had breast cancer, age 60. Paternal aunt had breast cancer, age 50. Risk Values: Chrystal 5 year model risk: 1.3%. NCI Lifetime model risk: 6.4%. Prior Study Comparison: 11/28/2017 Bilateral Screening Mammogram, [facility]. 07/27/2020 Bilateral Screening Mammogram, [facility]. 08/24/2021 Bilateral Screening Mammogram, [facility]. Tissue Density: The breast tissue is heterogeneously dense. This may lower the sensitivity of mammography. Findings: Analyzed By CAD. There is no suspicious group of microcalcifications or new suspicious mass in either breast. Benign calcifications within both breasts. Stable chronic nodularity in the left breast. No significant change from prior exams. Overall Assessment: Benign, BI-RAD 2 Management: Screening Mammogram of both breasts in 1 year. A clinical breast exam by your physician is recommended on an annual basis and results should be correlated with mammographic findings. Electronically signed and approved by: Delgado Menchaca D.O.
== END | disposition home or self-care (01) ==
LOC: RADMAMWWP 10:18
PROVIDERS: ATTEND Family Medicine
DX: Z12.39 Encounter for other screening for malignant neoplasm of breast (principal)
CPT/HCPCS: 77063; 77067

== ENCOUNTER 2023-06-12 12:05 | Day surgery (SDC) | payer MEDICARE ==
[2023-06-12 12:38] VITALS: BP 127/72; PULSE 64; RESP 16; TEMP 98.4
--- NOTE | 2023-06-12 22:53 | US ---
EXAMINATION TYPE: US FNA thyroid first lesion DATE OF EXAM: 06/12/2023 1:46 PM CLINICAL INDICATION:Female, 63 years old with history of E04.1 NONTOXIC SINGLE THYROID NODULE; COMPARISON: 04/22/2020 RADIOLOGIST: Dr. Chavez TECHNIQUE: Ultrasound guided percutaneous fine-needle aspiration. The patient was monitored by a milly zhong trained nurse independent of the Radiologist during sedation. FINDINGS: The procedure was explained to the patient. All questions were answered and informed consent was obta ined. The patient was placed supine and transverse ultrasound images of the thyroid gland are obtained. The TR for solid nodule measuring 2.2 x 1.4 x 1.0 cm in the anterior midpole is identified and targeted for sampling. We also saw the second, deeper nodule in the right lobe for which sampling was requested. However, th is now is a partially solid cystic, predominantly cystic 1.5 cm TR3 nodule. This can be reassessed at follow-up and FNA performed if it reaches 2.5 cm. The overlying skin was marked and prepped using sterile method. Timeout was taken per protocol. Follo wing administration 1% local lidocaine anesthesia, 5 passes were made utilizing 25-gauge 1.5 inch nee dles. Samples were collected by the IR nurse and prepared on slides After the needles were removed, hemostasis was obtained and a dressing placed. Patient's condition was unchanged after the procedure. No immediate complication. Patient was taken for postprocedure observation in stable condition. IMPRESSIONS: 1. Successful FNA of the 2.2 cm TR4 nodule mid right thyroid lobe. 2. The second nodule for which FNA was requested now has a predominantly cystic appearance compatible with a 1.5 cm TR3 nodule that should be reassessed at follow-up. FNA if it reaches 2.5 cm.
== END 2023-06-12 13:45 | disposition home or self-care (01) ==
LOC: RADPROMAIN 12:05
PROVIDERS: ATTEND Internal Medicine
DX: E04.1 Nontoxic single thyroid nodule (principal)
CPT/HCPCS: 10005; 88173; 88305

== ENCOUNTER → 2023-08-28 | Outpatient (CLI) | payer MEDICARE ==
--- NOTE | 2023-08-29 09:20 | MM ---
Reason for Exam: Screening (asymptomatic). Last screening mammogram was performed 12 month(s) ago. Patient History: Menarche at age 13. First Full-Term at age 21. Hysterectomy at age 45. Postmenopausal. Patient has history of breast feeding. Estrogen for 2 months. Paternal grandmother had breast cancer, age 60. Paternal aunt had breast cancer, age 50. Risk Values: Chrystal 5 year model risk: 1.4%. NCI Lifetime model risk: 6.2%. Prior Study Comparison: 07/27/2020 Bilateral Screening Mammogram, [facility]. 08/24/2021 Bilateral Screening Mammogram, [facility]. 08/27/2022 Bilateral MG 3D screening mammo w/cad, [facility]. Tissue Density: The breast tissue is heterogeneously dense. This may lower the sensitivity of mammography. Findings: Analyzed By CAD. There is no suspicious group of microcalcifications or new suspicious mass. Overall Assessment: Negative, BI-RAD 1 Management: Screening Mammogram of both breasts in [address] [facility] will attempt to contact patient to return for supplemental views and ultrasound if indicated. Patient should continue monthly self-breast exams. A clinical breast exam by your physician is recommended on an annual basis. This exam should not preclude additional follow-up of suspicious palpable abnormalities. Note on Chrystal scores and lifetime risk: 1. A Chrystal score greater than 3% is considered moderate risk. If this is the case, consider specialist referral to assess eligibility for a risk reducing agent. 2. If overall lifetime risk for the development of breast cancer is 20% or higher, the patient may qualify for future screening with alternating mammogram and breast MRI. Electronically signed and approved by: Yuniel Davis DO
== END | disposition home or self-care (01) ==
LOC: RADMAMWWP 09:54
PROVIDERS: ATTEND Internal Medicine
DX: Z12.31 Encounter for screening mammogram for malignant neoplasm of breast (principal); Z78.0 Asymptomatic menopausal state; Z80.3 Family history of malignant neoplasm of breast
CPT/HCPCS: 77063; 77067

== ENCOUNTER → 2023-09-04 | Outpatient (CLI) | payer MEDICARE ==
--- NOTE | 2023-09-06 09:49 | MR ---
EXAMINATION TYPE: MR brain wo/w con DATE OF EXAM: 09/04/2023 COMPARISON: 09/27/2014 HISTORY: 63-year-old female R42, vertigo, left sided hearing loss, ringing in ears TECHNIQUE: Multiplanar, multisequence images of the brain and brainstem were acquired before and aft er administration of 7ml mL IV Gadavist. Diffusion weighted imaging is performed. FINDINGS: No evidence for acute infarction, hemorrhage, mass, mass effect, midline shift, herniation, effacemen t of basal cisterns, or extra-axial fluid collection. The ventricles and sulci are age-appropriate. Major intracranial flow voids are intact. T2 weighted sequences show a 9 mm rounded area of bright signal within the cervical medullary junctio n at the level of the foramen magnum. Refer to axial series 401 image 3. However, this is seen only o n this particular sequence. Not corroborated on axial flair, DWI, SWI, or postcontrast sequences. Art ifact is suspected. Otherwise, there are only a couple punctate subcortical foci of bright signal in the anterior frontal lobes on either side likely trace burden of chronic small vessel ischemic disease. Midline structures demonstrate normal morphology. The craniocervical junction is normal. Post contrast images demonstrate no evidence of pathologic enhancement. Dural venous sinuses are pat ent. No abnormal mass in the cerebellopontine angle and no abnormal enhancement seen within the inter nal auditory canals. Mild mucosal thickening throughout the ethmoid air cells. Globes are intact. IMPRESSION: 1. No acute intracranial abnormality seen. No enhancing intracranial lesions. Only a couple punctate bright signal foci in the subcortical bifrontal regions likely trace burden of chronic small vessel i schemic disease. 2. A prominent 9 mm focus of bright signal within the cord at the cervicomedullary junction. Only see n on one slice on axial T2 sequence. Not corroborated on other sequences or other planes of imaging. Artifact is suspected. Recommend short interval follow-up in 3 months to reassess.
== END | disposition home or self-care (01) ==
LOC: RADMRIMAIN 07:11
PROVIDERS: ATTEND Internal Medicine
DX: H93.13 Tinnitus, bilateral (principal); H91.92 Unspecified hearing loss, left ear; R42 Dizziness and giddiness
CPT/HCPCS: 70553; A9585

== ENCOUNTER 2023-09-20 16:55 | Emergency (ER) | payer MEDICARE ==
[2023-09-20] MEDS ORDERED: SODIUM CHLORIDE 0.9% 500 ML 500 ML IV STA (17:10)
[2023-09-20 17:20] VITALS: RESP 18; TEMP 98.2
[2023-09-20 17:33] LABS: Basophils % (A) 0 %; Eosinophils # (A) 0.3 k/uL (0-0.7); Eosinophils % (A) 2 %; HCT 43.9 % (34.0-46.0); Lymphocytes # (A) 1.5 k/uL (1.0-4.8); Lymphocytes % (A) 14 %; MCH 31.4 pg (25.0-35.0); MCHC 34.1 g/dL (31.0-37.0); MCV 92.1 fL (80.0-100.0); Mean Platelet Volume 8.2; Monocytes # (A) 0.6 k/uL (0-1.0); Monocytes % (A) 5 %; Neutrophils # (A) 7.9 k/uL (1.3-7.7); Neutrophils % (A) 77 %; Platelet Count 201 k/uL (150-450); RBC 4.77 m/uL (3.80-5.40); RDW 12.4 % (11.5-15.5); WBC 10.3 k/uL (3.8-10.6)
[2023-09-20] MEDS ORDERED: METOCLOPRAMIDE 5 MG/ML 2 ML VIAL IVP STA (17:43)
--- NOTE | 2023-09-20 17:48 | ED ---
General Adult HPI - General Chief complaint: Abdominal Pain Stated complaint: ABD PAIN Time Seen by Provider: 09/20/23 16:59 Source: EMS Mode of arrival: EMS Limitations: no limitations - History of Present Illness Initial comments: Dictation was produced using [employer] dictation software. please excuse any grammatical, word or spelling errors. Chief Complaint: 63-year-old female with no significant past medical history presents to the ER for generalized weakness History of Present Illness: 63-year-old female presents emergency department for generalized weakness. Last night she had a bout of what she describes as abdominal pain. She felt like her abdomen was rock hard. She went to the bathroom and had a large amount of nonbilious nonbloody diarrhea. States that her abdomen is still a little painful though not nearly as bad as it was yesterday. She states she is here mostly because she feels weak. Patient has history of vertigo. States that her vertigo feels like it's slightly exacerbated. The ROS documented in this emergency department record has been reviewed and confirmed by me. Those systems with pertinent positive or negative responses have been documented in the HPI. All other systems are other negative and/or noncontributory. - Related Data Home Medications Medication Instructions Recorded Confirmed Atorvastatin [Lipitor] 20 mg PO DAILY 04/20/15 09/20/23 Levothyroxine Sodium [Synthroid] 50 mcg PO DAILY 04/20/15 09/20/23 Rivastigmine Tartrate [Exelon] 3 mg PO BID 02/24/21 09/20/23 traZODone HCL [Desyrel] 25 mg PO HS 05/30/23 09/20/23 Aspirin EC [Ecotrin Low Dose] 81 mg PO HS 09/20/23 09/20/23 FLUoxetine HCL [Sarafem] 60 mg PO HS 09/20/23 09/20/23 Omeprazole 40 mg PO DAILY 09/20/23 09/20/23 Allergies Allergy/AdvReac Type Severity Reaction Status Date / Time aspirin [From Percodan] AdvReac Nausea & Verified 09/20/23 18:08 Vomiting oxycodone HCl [From Percodan] AdvReac Nausea & Verified 09/20/23 18:08 Vomiting oxycodone terephthalate AdvReac Nausea & Verified 09/20/23 18:08 [From Percodan] Vomiting Review of Systems ROS Statement: Those systems with pertinent positive or pertinent negative responses have been documented in the HPI. ROS Other: All systems not noted in ROS Statement are negative. Past Medical History Past Medical History: Cancer, Hyperlipidemia, Memory Impairment, Thyroid Disorder Additional Past Medical History / Comment(s): ABD. PAIN, CONSTIPATION AND N/V. SKIN CANCER. Vertigo History of Any Multi-Drug Resistant Organisms: None Reported Past Surgical History: Cardiac Ablation, Section, Cholecystectomy, Hysterectomy Additional Past Surgical History / Comment(s): thyroid surg. ovarian mass. COLONOSCOPY Past Anesthesia/Blood Transfusion Reactions: No Reported Reaction Past Psychological History: Anxiety, Depression, PTSD Smoking Status: Never smoker Past Alcohol Use History: Rare Past Drug Use History: None Reported - Past Family History Mother Family Medical History: Deep Vein Thrombosis (DVT) Father Family Medical History: Cancer General Exam - General Exam Comments Initial Comments: PHYSICAL EXAM: General Impression: Alert and oriented x3, not in acute distress HEENT: Normocephalic atraumatic, extra-ocular movements intact, pupils equal and reactive to light bilaterally, mucous membranes moist. Cardiovascular: Heart regular rate and rhythm Chest: Able to complete full sentences, no retractions, no tachypnea Abdomen: abdomen soft, mild tenderness to the periumbilical area, non-distended, no organomegaly, negative Ahuja sign, no pain at McBurney's point, no left lower quadrant tenderness Musculoskeletal: Pulses present and equal in all extremities, no peripheral edema Motor: no focal deficits noted Neurological: CN II-XII grossly intact, no focal motor or sensory deficits noted Skin: Intact with no visualized rashes Psych: Normal affect and mood Limitations: no limitations Course Vital Signs 09/20/23 09/20/23 17:00 18:19 Temperature 98.2 F Pulse Rate 63 61 Respiratory 18 18 Rate Blood Pressure 111/77 107/79 O2 Sat by Pulse 98 99 Oximetry Medical Decision Making - Medical Decision Making Was pt. sent in by a medical professional or institution (, PA, AIR TRANSPORTATION PROVIDER, urgent care, hospital, or halfway...) When possible be specific @ -No Did you speak to anyone other than the patient for history (EMS, parent, family, police, friend...)? What history was obtained from this source @ -No Did you review nursing and triage notes (agree or disagree)? Why? @ -I reviewed and agree with nursing and triage notes Were old charts reviewed (outside hosp., previous admission, EMS record, old EKG, old radiological studies, urgent care reports/EKG's, halfway records)? Report findings @ -No old charts were reviewed Differential Diagnosis (chest pain, altered mental status, abdominal pain women, abdominal pain men, vaginal bleeding, musculoskeletal, weakness, fever, dyspnea, syncope, headache, dizziness, GI bleed, back pain, seizure, CVA, palpatations, mental health)? @ -Differential Abdominal Pain Women: Appendicitis, Cholecystitis, diverticulosis, ischemic bowel, pancreatitis, hepatitis, UTI, gastroenteritis, AAA, incarcerated hernia, bowel obstruction, constipation, inflammatory bowel, hepatitis, peptic ulcer disease, splenic infarction, perforated viscus, vulvitis, ovarian torsion, PID, kidney stone, placenta abruption, this is not meant to be an all-inclusive list EKG interpreted by me (3pts min.). @ -My EKG interpretation: Ventricular rate 66 sinus rhythm, right bundle branch block,. 154, QRS 137, QTc 436. No NE prolongation, no QTC prolongation, no ST or T-wave changes noted. Overall, this EKG is unremarkable X-rays interpreted by me (1pt min.). @ -Abdominal x-ray is unremarkable CT interpreted by me (1pt min.). @ -None done U/S interpreted by me (1pt. min.). @ -None done What testing was considered but not performed or refused? (CT, X-rays, U/S, labs)? Why? @ -None What meds were considered but not given or refused? Why? @ -None Did you discuss the management of the patient with other professionals (professionals i.e. , PA, AIR TRANSPORTATION PROVIDER, lab, RT, psych nurse, social staff worker, telecommunication tower technician, teacher, public service officer, social work case manager)? Give summary @ -No Was smoking cessation discussed for >3mins.? @ -No Was critical care preformed (if so, how long)? @ -No Were there social determinants of health that impacted care today? How? (Homelessness, low income, unemployed, alcoholism, drug addiction, transportation, low edu. Level, literacy, decrease access to med. care, prison, rehab)? @ -No Was there de-escalation of care discussed even if they declined (Discuss DNR or withdrawal of care, Hospice)? DNR status @ -No What co-morbidities impacted this encounter? (DM, HTN, Smoking, COPD, CAD, Cancer, CVA, ARF, Chemo, Hep., AIDS, mental health diagnosis, sleep apnea, morbid obesity)? @ -None Was patient admitted / discharged? Hospital course, mention meds given and route, prescriptions, significant lab abnormalities, going to OR and other pertinent info. @ -63-year-old female presents emergency Department with episode of abdominal pain, diarrhea and fatigue. Vital signs stable. Abdominal examination is unremarkable. Labs and EKG is unremarkable. Patient reevaluated after symptomatic control medications. She is improved. Patient discharged. Symptoms likely secondary gastroenteritis. Patient has no high-risk features. Undiagnosed new problem with uncertain prognosis? @ -No Drug Therapy requiring intensive monitoring for toxicity (Heparin, Nitro, Insulin, Cardizem)? @ -No Were any procedures done? @ -No Diagnosis/symptom? Acute, or Chronic, or Acute on Chronic? Uncomplicated (without systemic symptoms) or Complicated (systemic symptoms)? @ -Enteritis Side effects of treatment? @ -No Exacerbation, Progression, or Severe Exacerbation? @ -No Poses a threat to life or bodily function? How? (Chest pain, [place], [place], pneumonia, PE, COPD, DKA, ARF, appy, cholecystitis, CVA, Diverticulitis, Homicidal, Suicidal, threat to staff... and all critical care pts) @ -No - Lab Data Result diagrams: 09/20/23 17:25 09/20/23 17:25 Lab Results 09/20/23 09/20/23 09/20/23 Range/Units 17:25 17:25 17:25 WBC 10.3 (3.8-10.6) k/uL RBC 4.77 (3.80-5.40) m/uL Hgb 15.0 (11.4-16.0) gm/dL Hct 43.9 (34.0-46.0) % MCV 92.1 (80.0-100.0) fL MCH 31.4 (25.0-35.0) pg MCHC 34.1 (31.0-37.0) g/dL RDW 12.4 (11.5-15.5) % Plt Count 201 (150-450) k/uL MPV 8.2 Neutrophils % 77 % Lymphocytes % 14 % Monocytes % 5 % Eosinophils % 2 % Basophils % 0 % Neutrophils # 7.9 H (1.3-7.7) k/uL Lymphocytes # 1.5 (1.0-4.8) k/uL Monocytes # 0.6 (0-1.0) k/uL Eosinophils # 0.3 (0-0.7) k/uL Basophils # 0.0 (0-0.2) k/uL PT (10.0-12.5) sec INR (<1.2) APTT (22.0-30.0) sec Sodium 138 (137-145) mmol/L Potassium 3.9 (3.5-5.1) mmol/L Chloride 105 (98-107) mmol/L Carbon Dioxide 21 L (22-30) mmol/L Anion Gap 12 mmol/L BUN 18 H (7-17) mg/dL Creatinine 0.89 (0.52-1.04) mg/dL Est GFR (CKD-EPI)AfAm 80 (>60 ml/min/1.73 sqM) Est GFR (CKD-EPI)NonAf 70 (>60 ml/min/1.73 sqM) Glucose 133 H (74-99) mg/dL Plasma Lactic Acid Wu 1.6 (0.7-2.0) mmol/L Calcium 9.6 (8.4-10.2) mg/dL Total Bilirubin 0.7 (0.2-1.3) mg/dL AST 39 H (14-36) U/L ALT 29 (4-34) U/L Alkaline Phosphatase 87 (38-126) U/L Total Protein 6.9 (6.3-8.2) g/dL Albumin 4.4 (3.5-5.0) g/dL Lipase 59 (23-300) U/L Influenza Type A (PCR) (Not Detectd) Influenza Type B (PCR) (Not Detectd) RSV (PCR) (Not Detectd) SARS-CoV-2 (PCR) (Not Detectd) 09/20/23 09/20/23 Range/Units 17:58 18:43 WBC (3.8-10.6) k/uL RBC (3.80-5.40) m/uL Hgb (11.4-16.0) gm/dL Hct (34.0-46.0) % MCV (80.0-100.0) fL MCH (25.0-35.0) pg MCHC (31.0-37.0) g/dL RDW (11.5-15.5) % Plt Count (150-450) k/uL MPV Neutrophils % % Lymphocytes % % Monocytes % % Eosinophils % % Basophils % % Neutrophils # (1.3-7.7) k/uL Lymphocytes # (1.0-4.8) k/uL Monocytes # (0-1.0) k/uL Eosinophils # (0-0.7) k/uL Basophils # (0-0.2) k/uL PT 10.2 (10.0-12.5) sec INR 0.9 (<1.2) APTT 18.6 L (22.0-30.0) sec Sodium (137-145) mmol/L Potassium (3.5-5.1) mmol/L Chloride (98-107) mmol/L Carbon Dioxide (22-30) mmol/L Anion Gap mmol/L BUN (7-17) mg/dL Creatinine (0.52-1.04) mg/dL Est GFR (CKD-EPI)AfAm (>60 ml/min/1.73 sqM) Est GFR (CKD-EPI)NonAf (>60 ml/min/1.73 sqM) Glucose (74-99) mg/dL Plasma Lactic Acid Wu (0.7-2.0) mmol/L Calcium (8.4-10.2) mg/dL Total Bilirubin (0.2-1.3) mg/dL AST (14-36) U/L ALT (4-34) U/L Alkaline Phosphatase (38-126) U/L Total Protein (6.3-8.2) g/dL Albumin (3.5-5.0) g/dL Lipase (23-300) U/L Influenza Type A (PCR) Not Detected (Not Detectd) Influenza Type B (PCR) Not Detected (Not Detectd) RSV (PCR) Not Detected (Not Detectd) SARS-CoV-2 (PCR) Not Detected (Not Detectd) Disposition Clinical Impression: Enteritis Disposition: HOME SELF-CARE Condition: Good Instructions (If sedation given, give patient instructions): Gastroenteritis (ED) Is patient prescribed a controlled substance at d/c from ED?: No Referrals: Leatha Faulkner MD [Primary Care Provider] - 1-2 days Time of Disposition: 19:41
[2023-09-20 18:01] LABS: ALT 29 U/L (4-34); AST 39 U/L (14-36); African American GFR (CKD) 80 (>60 ml/min/1.73 sqM); Albumin 4.4 g/dL (3.5-5.0); Alkaline Phosphatase 87 U/L (38-126); Anion Gap 12 mmol/L; Blood Urea Nitrogen 18 mg/dL (7-17); Calcium 9.6 mg/dL (8.4-10.2); Carbon Dioxide 21 mmol/L (22-30); Chloride 105 mmol/L (98-107); Glucose 133 mg/dL (74-99); Lipase 59 U/L (23-300); Non-African American GFR(CKD) 70 (>60 ml/min/1.73 sqM); Potassium 3.9 mmol/L (3.5-5.1); Sodium 138 mmol/L (137-145); Total Bilirubin 0.7 mg/dL (0.2-1.3); Total Protein 6.9 g/dL (6.3-8.2)
[2023-09-20 18:29] VITALS: PULSE 61
[2023-09-20 18:45] LABS: INR 0.9 (<1.2); Prothrombin Time 10.2 sec (10.0-12.5)
[2023-09-20 18:46] LABS: Partial Thromboplastin Time 18.6 sec (22.0-30.0)
--- NOTE | 2023-09-20 19:17 | XR ---
EXAMINATION TYPE: XR abdomen 1V DATE OF EXAM: 09/20/2023 6:12 PM CLINICAL INDICATION:Female, 63 years old with history of abdominal pain; [facility] COMPARISON: None. TECHNIQUE: One radiographic view of the abdomen was obtained. FINDINGS: The bowel gas pattern is nonspecific without dilated loops of small or large bowel. There i s no evidence for organomegaly or pneumoperitoneum on this supine exam. The osseous structures appea r intact with moderate degenerative change of the spine and mild apex right scoliosis noted. No abno rmal calcifications are present. Fecal material and gas are demonstrated throughout the colon and rec josephine. Monitor leads and other extrinsic densities over the the field of view. No radiopaque foreign body is seen. IMPRESSION: Nonspecific bowel gas pattern without radiographic evidence for acute process.
[2023-09-20] MEDS ORDERED: ONDANSETRON 4 MG ODT STARTER PACK 2 TAB BTL PO STA (19:42)
[2023-09-20 20:23] VITALS: BP 117/65
== END 2023-09-20 20:17 | disposition home or self-care (01) ==
LOC: EC 16:55
DX: K52.9 Noninfective gastroenteritis and colitis, unspecified (principal); I45.10 Unspecified right bundle-branch block; E78.5 Hyperlipidemia, unspecified; E07.9 Disorder of thyroid, unspecified; F41.9 Anxiety disorder, unspecified; F32.A Depression, unspecified; Z79.890 Hormone replacement therapy; Z79.82 Long term (current) use of aspirin; Z79.899 Other long term (current) drug therapy; Z20.822 Contact with and (suspected) exposure to COVID-19; Z88.5 Allergy status to narcotic agent; Z88.6 Allergy status to analgesic agent
CPT/HCPCS: 36415; 93005; 80053; 83605; 83690; 85025; 85610; 85730; 87636; 74018; 99285; 96360; S0119

== ENCOUNTER → 2024-02-03 | Outpatient (CLI) | payer MEDICARE ==
--- NOTE | 2024-02-03 13:38 | CA ---
Stress Echo Report Artie Chacon Age: 63 Gender: F : 1960 Exam Date: 02/03/2024 08:28 Exam Location: [place] Stress Ht (in): 63 Wt (lb): 156 Ordering Physician: Leatha Faulkner MD Referring Physician: Leatha Faulkner MD Atomizer Assembler: Ursula Reeves RCS Technologist Procedure CPT: Indication: R00.2 palpitations ICD-9 Codes: Rhythm: Patient History: Cardiac Medications: Medications in past 24 hours: Contrast: N/A Stress Results Protocol: Stephen Total dose(mL): NA Exercise Duration (min:sec): 7:[address] Depression (mm): Angina Score: Aguilera Score: METS: 8.9 Resting HR: 76 Resting BP: 108 / 71 Peak HR: 147 Peak BP: 158 / 44 Max Predicted HR: 158 93 % Max Predicted HR Target HR: 134 Double Product: 77012 Stress Summary: BP Response: Reason for Termination: Reached target heart rate or work-load Cardiac Symptoms: NO SYMPTOMS ECG Analysis Resting ECG: Stress ECG: Arrhythmia: Echo Analysis Resting Echo: Peak Echo Analysis: MEASUREMENTS (Male/Female) Normal Values CONCLUSIONS Patient underwent exercise stress echo with a Stephen protocol treadmill stress test. Patient exercised into Stage 3 for a total of 7 minutes and 27 seconds reaching a total of 8.9 METS. Patient's maximum heart rate was 147 which represented 93 % age- predicted maximum heart rate. Stress EKG portion: At baseline patient's EKG showed normal sinus rhythm, normal axis, right bundle branch block with ST depressions V1 through V6.. At peak exercise, EKG showed no significant change from baseline. Stress echo portion: 2-D echocardiogram was performed in the parasternal long, personal short, apical 2 and apical four-chamber views at rest, peak exercise and in recovery. At baseline, echocardiogram showed left ventricular ejection fraction 55% without wall motion abnormalities. With peak exercise, echocardiogram shows improvement in left ventricular ejection fraction, increase contractility, decrease in left ventricular end systolic dimension without wall motion abnormalities consistent with a normal response to exercise. Conclusions: 1. Nonspecific stress EKG portion secondary baseline EKG abnormalities 2. Normal echo response to exercise without evidence of inducible ischemia. 3. Good exercise capacity. Dr. Elliot Fajardo DO (Electronically Signed) Final Date: 03 February 2024 13:37
== END | disposition home or self-care (01) ==
LOC: RADECHMAIN 07:53
PROVIDERS: ATTEND Internal Medicine
DX: R94.31 Abnormal electrocardiogram [ECG] [EKG] (principal); R00.2 Palpitations
CPT/HCPCS: 93270; 93351

== ENCOUNTER → 2024-03-04 | Outpatient (CLI) | payer MEDICARE ==
[2024-03-04 15:47] LABS: Basophils # (A) 0.08 X 10*3/uL (0.00-0.10); Basophils % (A) 1.9 %; Eosinophils # (A) 0.13 X 10*3/uL (0.04-0.35); Eosinophils % (A) 3.1 %; HCT 38.8 % (37.2-46.3); HGB 12.8 g/dL (12.0-15.0); Lymphocytes # (A) 1.54 X 10*3/uL (0.90-5.00); Lymphocytes % (A) 36.6 %; MCH 30.1 pg (27.0-32.0); MCV 91.3 FL (80.0-97.0); Mean Platelet Volume 11.2 FL (9.5-12.2); Monocytes # (A) 0.34 X 10*3/uL (0.20-1.00); Monocytes % (A) 8.1 %; NRBC Per 100 WBC 0 X 10*3/uL (0.00-0.01); Neutrophils # (A) 2.11 X 10*3/uL (1.80-7.70); Neutrophils % (A) 50.1 %; Platelet Count 204 X 10*3/uL (140-440); RBC 4.25 X 10*6/uL (4.10-5.20); WBC 4.21 X 10*3/uL (4.50-10.00)
[2024-03-04 16:02] LABS: % Iron Saturation 22.92 (12.00-45.00); ALT 30 U/L (8-44); AST 35 U/L (13-35); Albumin 4.6 g/dL (3.8-4.9); Albumin/Globulin Ratio 2.42 Ratio (1.60-3.17); Alkaline Phosphatase 83 U/L (41-126); Amylase 47 U/L (23-121); BUN/Creat Ratio 16.43 Ratio (12.00-20.00); Blood Urea Nitrogen 11.5 mg/dL (9.0-27.0); Carbon Dioxide 23.6 mmol/L (21.6-31.8); Chloride 105 mmol/L (96-109); Globulin 1.9 g/dL (1.6-3.3); Glucose 92 mg/dL (70-110); Iron 77 UG/DL (50-170); Lipase 20 U/L (14-63); Potassium 4.2 mmol/L (3.5-5.5); Sodium 141 mmol/L (135-145); Total Bilirubin 0.6 mg/dL (0.3-1.2); Total Iron Binding Capacity 336 UG/DL (228-460); Total Protein 6.5 g/dL (6.2-8.2)
[2024-03-04 19:18] LABS: Gliadin AB IgA, Deaminated Negative (Negative); Gliadin AB IgA, Unit <0.5 U/mL; Gliadin AB IgG, Deaminated Negative (Negative); Gliadin AB IgG, Unit <0.4 U/mL
[2024-03-05 07:24] LABS: Cryptosporidium Antigen Negative (Negative)
== END | disposition home or self-care (01) ==
LOC: LABWHC1 10:10
PROVIDERS: ATTEND Internal Medicine
DX: R19.7 Diarrhea, unspecified (principal)
CPT/HCPCS: 36415; 80053; 82150; 82728; 83516; 83540; 83550; 83630; 83690; 85025; 87045; 87046; 87328; 87329

== ENCOUNTER → 2024-03-20 | Outpatient (CLI) | payer MEDICARE ==
--- NOTE | 2024-03-21 04:48 | CT ---
EXAMINATION TYPE: CT abdomen w con CT DLP: 676 mGycm, Automated exposure control for dose reduction was used. DATE OF EXAM: 03/20/2024 8:49 AM COMPARISON: Abdominal ultrasound 01/30/2021, abdominal radiograph 09/20/2023 CLINICAL INDICATION:Female, 63 years old with history of R19.7 DIARRHEA, UNSPECIFIED; Chronic diarrhe a, epigastric pain, weight loss of 20 lbs since January TECHNIQUE: Standard CT of the abdomen following the administration of 100 cc of Isovue 300 IV contr ast material and oral contrast. Delayed imaging was obtained. Coronal and sagittal reformats were per formed. FINDINGS: LOWER CHEST: Unremarkable ABDOMEN LIVER: Subcentimeter peripheral right hepatic lobe hypoattenuating focus which is too small character ize but likely represents a cyst. Focal fatty infiltration along the falciform ligament. GALLBLADDER AND BILE DUCTS: Gallbladder is surgically absent. Expected extra hepatic biliary duct dil atation noted. Common bile duct measures up to 1.5 cm. No focal tapering demonstrated. No intrahepati c biliary ductal dilatation. PANCREAS: Unremarkable. SPLEEN: Unremarkable. ADRENAL GLANDS: Unremarkable. KIDNEYS AND URETERS: No evidence of hydronephrosis or renal calculus. Contrast is demonstrated within both collecting systems on the delayed phase. STOMACH AND BOWEL: Proximal duodenal diverticulum noted. No visualized focal bowel wall thickening or surrounding inflammatory changes. Enteric contrast reaches the mid small bowel. No evidence of bowel obstruction. PERITONEUM: No evidence of pneumoperitoneum or free fluid. VASCULATURE: No evidence of aortic aneurysm. MUSCULOSKELETAL: No acute osseous abnormalities LYMPH NODES: No gross evidence for lymphadenopathy. SOFT TISSUE/ABDOMINAL WALL: Unremarkable IMPRESSION: No CT evidence of acute process within the abdomen.
== END | disposition home or self-care (01) ==
LOC: RADCTMAIN 07:25
PROVIDERS: ATTEND Internal Medicine
DX: R19.7 Diarrhea, unspecified (principal); R63.4 Abnormal weight loss; R10.13 Epigastric pain
CPT/HCPCS: 74160; Q9967

== ENCOUNTER → 2024-08-31 | Outpatient (CLI) | payer MEDICARE ==
--- NOTE | 2024-09-01 10:19 | MM ---
Reason for Exam: Screening (asymptomatic). Last screening mammogram was performed 12 month(s) ago. Patient History: Menarche at age 13. First Full-Term at age 21. Hysterectomy at age 45. Postmenopausal. Patient has history of breast feeding. Estrogen for 2 months. Paternal grandmother had breast cancer, age 60. Paternal aunt had breast cancer, age 50. Risk Values: Chrystal 5 year model risk: 1.4%. NCI Lifetime model risk: 6.0%. Prior Study Comparison: 08/24/2021 Bilateral Screening Mammogram, [facility]. 08/27/2022 Bilateral MG 3D screening mammo w/cad, [facility]. 08/28/2023 Bilateral MG 3D screening mammo w/cad, [facility]. Tissue Density: The breasts are heterogeneously dense, which may obscure small masses. Findings: Analyzed By CAD. Bilateral areas of asymmetric density remain unchanged. There is no suspicious group of microcalcifications or new suspicious mass in either breast. Overall Assessment: Benign, BI-RAD 2 Management: Screening Mammogram of both breasts in 1 year. . Patient should continue monthly self-breast exams. A clinical breast exam by your physician is recommended on an annual basis. This exam should not preclude additional follow-up of suspicious palpable abnormalities. Note on Chrystal scores and lifetime risk: 1. A Chrystal score greater than 3% is considered moderate risk. If this is the case, consider specialist referral to assess eligibility for a risk reducing agent. 2. If overall lifetime risk for the development of breast cancer is 20% or higher, the patient may qualify for future screening with alternating mammogram and breast MRI. [facility], , 09/01/2024 10:16 AM. Electronically signed and approved by: Emma Chavez M.D. Radiologist
== END | disposition home or self-care (01) ==
LOC: RADMAMWWP 08:57
PROVIDERS: ATTEND Internal Medicine
DX: Z12.31 Encounter for screening mammogram for malignant neoplasm of breast
CPT/HCPCS: 77063; 77067

== ENCOUNTER → 2024-09-15 | Outpatient (CLI) | payer MEDICARE ==
--- NOTE | 2024-09-15 17:20 | US ---
EXAMINATION TYPE: US thyroid st tissue head/neck DATE OF EXAM: 09/15/2024 COMPARISON: NONE CLINICAL INDICATION: Female, 64 years old with history of E04.1 THYROID NODULE; Thyroid nodules left side removed. TECHNIQUE: Grayscale and color Doppler imaging of the thyroid gland. FINDINGS: GLAND SIZE: Right Lobe: 5.3 x 2.5 x 2.6 cm Overall Parenchyma: heterogeneous Left Lobe: Surgically absent Isthmus Thickness: 0.3 cm NODULES RIGHT: # of nodules measured on right: 3 1. 2.1 X 1.4 x 1.8 cm, mid , Prior size: 2.3 x 0.8 x 1.9 cm previously biopsied. TIRADS Score: 4 TIRADS Category 4: Composition: Solid or almost completely solid (2 points). Echogenicity: Hypoechoic (2 points). Shape: Wider than tall (0 points). Margin: Smooth (0 points). Echogenic foci: None or large comet-tail artifacts (0 points) Recommendation: Previously biopsied. 2. 1.0 X 0.6 x 0.7 cm, lower , Prior size: 1.0 x 0.7 x 1.1 cm TIRADS Score: 4 TIRADS Category 4: Composition: Solid or almost completely solid (2 points). Echogenicity: Hypoechoic (2 points). Shape: Wider than tall (0 points). Margin: Smooth (0 points). Echogenic foci: None or large comet-tail artifacts (0 points) Recommendation: If >1.5cm: FNA; If >1cm: Follow up at 1,2, 3,5 years 3. 0.4 X 0.4 x 0.5 cm, lower , Prior size: 0.5 x 0.4 x 0.4 cm TIRADS Score: 4 TIRADS Category 4: Composition: Indeterminate due to calcification (2 points). Echogenicity: Cannot be determined (1 point). Shape: Wider than tall (0 points). Margin: Smooth (0 points). Echogenic foci: Macrocalcifications (1 point) Recommendation: If >1.5cm: FNA; If >1cm: Follow up at 1,2, 3,5 years LEFT: # of nodules measured on left: 0 ISTHMUS: # of nodules measured in the isthmus: 0 Bilateral neck scanned, no evidence of lymphadenopathy. IMPRESSION: Multiple right-sided thyroid nodules one of which the largest segment. The biopsy. Continued surveill ance recommended of the remainder. [facility], Workstation: [id number], 09/15/2024 5:18 PM
== END | disposition home or self-care (01) ==
LOC: RADUSWWP 13:06
PROVIDERS: ATTEND Internal Medicine
DX: E04.2 Nontoxic multinodular goiter (principal)
CPT/HCPCS: 76536

== ENCOUNTER 2025-01-01 08:33 | Day surgery (SDC) | payer MEDICARE ==
[2025-01-01 09:01] VITALS: RESP 16; TEMP 98
[2025-01-01 09:49] VITALS: BP 95/59; PULSE 65
--- NOTE | 2025-01-01 10:39 | US ---
EXAMINATION TYPE: US FNA thyroid first lesion DATE OF EXAM: 01/01/2025 9:48 AM COMPARISON: Direct ultrasound CLINICAL INDICATION:Female, 64 years old with history of E04.1 NONTOXIC SINGLE THYROID NODULE; , ATTENDING: Dr. Yuniel Davis PROCEDURE: Informed consent was obtained. The risks and benefits of the procedure were discussed with the patien t. The site was marked. Timeout procedure was performed Ultrasound imaging demonstrates a right thyroid nodule The patient was prepped, draped in the usual sterile fashion, and locally anesthetized with 1% lidoca ine. Five fine needle aspiration were then performed with a 25 gauge needle. Samples were sent to [facility] pathology department for further analysis. Patient tolerated the procedure without incident and wa s sent home in stable condition. IMPRESSION: Successful ultrasound guided fine needle aspiration [facility], , 01/01/2025 10:37 AM
== END 2025-01-01 09:45 | disposition home or self-care (01) ==
LOC: RADPROMAIN 08:33
PROVIDERS: ATTEND Internal Medicine
DX: E04.1 Nontoxic single thyroid nodule (principal)
CPT/HCPCS: 10005; 88173; 88305